=== PATIENT | female | born 1950 | race Caucasian/White ===

== ENCOUNTER → 2016-09-26 08:35 | Outpatient (CLI) | payer BC | END | disposition home or self-care (01) | LOC: D.RAD 08:35 | DX: R13.10 Dysphagia, unspecified (principal) ==

== ENCOUNTER → 2016-10-05 09:18 | Outpatient (CLI) | payer BC | END | disposition home or self-care (01) | LOC: D.US 09:18 | DX: R13.10 Dysphagia, unspecified (principal); R93.8 Abnormal findings on diagnostic imaging of other specified body structures ==

== ENCOUNTER → 2016-10-11 11:33 | Outpatient (CLI) | payer BC | END | disposition home or self-care (01) | LOC: D.CT 11:30 | DX: R13.10 Dysphagia, unspecified (principal) ==

== ENCOUNTER 2018-05-14 19:00 | Outpatient (CLI) | payer MEDICARE, BC | END 2018-05-14 23:59 | disposition home or self-care (01) | LOC: D.MAMMO 19:00 | PROVIDERS: ATTEND Nurse Practitioner Women's Health | DX: Z12.31 Encounter for screening mammogram for malignant neoplasm of breast (principal) ==